=== PATIENT | female | born 1990 | race Caucasian/White ===

== ENCOUNTER 2018-04-15 10:03 | Day surgery (SDC) | payer BC, OTHER ==
[~2018-04-15 10:03] MED LIST: CEFAZOLIN 2 GM/50 ML (PMX) 50 ML IVPB; SOD CHLORIDE 0.9% 1,000 ML IV
[2018-04-15] MEDS ORDERED: SUCCINYLCHOLINE CHLORIDE 100 MG/5 ML SYG IV (13:22)
[2018-04-15] MEDS ORDERED: PROPOFOL 20 ML (13:22)
[2018-04-15] MEDS ORDERED: MIDAZOLAM 1 MG/ML 2 ML INJ (13:23)
[2018-04-15] MEDS ORDERED: METOCLOPRAMIDE 10 MG INJ (13:23)
[2018-04-15] MEDS ORDERED: FENTAnyl 50 MCG/ML VIAL (13:23)
[2018-04-15] MEDS ORDERED: ONDANSETRON 4 MG INJ (13:23)
[2018-04-15] MEDS ORDERED: CEFAZOLIN 1 GM INJ (13:56)
[2018-04-15] MEDS: BUPIVACAINE 0.25% (MPF) 30 ML INJ (13:56)
[2018-04-15] MEDS ORDERED: HYDROCODONE/APAP (5/325) TAB PO (14:30)
[2018-04-15] MEDS ORDERED: EPHEDrine SULFATE 50 MG/5 ML SYG IV (15:00)
[2018-04-15] MEDS ORDERED: MEPERIDINE 25 MG INJ IV (15:00)
[2018-04-15] MEDS ORDERED: DIPHENHYDRAMINE 50 MG INJ IV (15:00)
[2018-04-15] MEDS: HYDROmorphONE 1 MG/5 ML IV SYRINGE IV (15:00)
[2018-04-15] MEDS ORDERED: LABETALOL HCL 20MG INJ IV (15:00)
[2018-04-15] MEDS ORDERED: hydrALAzine 20 MG INJ IV (15:00)
[2018-04-15] MEDS ORDERED: HYDROmorphONE 1 MG/5 ML IV SYRINGE IV ×2 (15:00)
[2018-04-15] MEDS: ONDANSETRON 4 MG INJ IV (16:31)
== END 2018-04-15 16:53 | disposition home or self-care (01) ==
LOC: SDS 10:03
DX: K60.3 Anal fistula (principal)
CPT/HCPCS: 46270; 84703